=== PATIENT | female | born 1950 | race Caucasian/White ===

== ENCOUNTER 2023-02-14 12:07 | Observation (INO) | payer MEDICARE, SELFPAY ==
[2023-02-14 12:14] VITALS: BP 134/72; BP 138/82; PULSE 53; PULSE 54; RESP 18; TEMP 36.4; O2SAT 95; O2SAT 98; BMI 30.6
--- NOTE | 2023-02-14 12:29 | PC.NURSE ---
Patient alert and oriented x 3. tele: sinus driss 50's Patient is on Metoprolol. vomited after she passed out. Family at bedside.
--- NOTE | 2023-02-14 13:32 | ED.SYNCOPE ---
HPI - Syncope General Chief Complaint: Syncope Stated Complaint[place] Time Seen by Provider: 02/14/23 13:32 Source: patient and EMS Mode of arrival: EMS Limitations: no limitations History of Present Illness HPI narrative: Passed out while having breakfast at the [employer]. states that she does have a history of stents. Patient states that she took a tramadol for neck pain and was up all night with pain. Patient states at the [employer] everything was fine she ate and then suddely was spinning and got hot flashes and then passed out. After waking up she vomitted. complaint: loss of consciousness -: second(s) Prodromal symptoms: other (dizziness) Related Data Home Medications Medication Instructions Recorded Confirmed adalimumab 40 mg/0.8 mL mg subcut 02/14/23 subcutaneous pen kit (Humira Pen) aspirin 81 mg PO DAILY 02/14/23 02/14/23 atorvastatin 80 mg tablet 80 mg PO DAILY 02/14/23 02/14/23 gabapentin 800 mg tablet 800 mg PO TID 02/14/23 02/14/23 hydrochlorothiazide 25 mg tablet 25 mg PO DAILY 02/14/23 02/14/23 icosapent ethyl 1 gram capsule 2 g PO BID 02/14/23 02/14/23 (Vascepa) levothyroxine 100 mcg tablet mcg PO 02/14/23 lisinopril 20 mg tablet 20 mg PO DAILY 02/14/23 02/14/23 metoprolol tartrate 25 mg tablet 25 mg PO BID 02/14/23 02/14/23 tramadol 50 mg tablet 50 mg PO Q4-6H PRN Pain 02/14/23 02/14/23 Allergies Allergy/AdvReac Type Severity Reaction Status Date / Time Sulfa (Sulfonamide AdvReac Nausea Verified 02/14/23 12:21 Antibiotics) Review of Systems Review of Systems: Yes all other systems are reviewed and are negative Neurologic: Denies Sensory deficit (Neuro) [facility] Social History Social History Advance Directives: No Advance Directives Information Provided: Yes Physical Exam Vital Signs: Vital Signs: Last Vital Signs Temp 97.4 F 02/14/23 16:10 Pulse 55 02/14/23 16:10 Resp 16 02/14/23 16:10 BP 137/76 02/14/23 16:10 Pulse Ox 94 02/14/23 16:10 O2 Del Method Room Air 02/14/23 16:10 BMI result Body Mass Index 30.6 Const: General: healthy appearing Nutritional Appearance: average body habitus Orientation/consciousness: oriented to person and patient oriented x3 Limitations: no limitations HEENT: Head: Yes normal to inspection Ears: external ears normal General nose exam: Normal external nose present Mouth: Normal oral and palatal mucosa present and oropharynx normal Throat: Yes posterior oropharynx normal Eyes: General: appearance normal, both eyes and all related structures Neck: Other: supple Neck: Yes normal visual inspection Chest: Chest palpation & inspection: normal inspection of the chest Resp: Auscultation: clear to auscultation bilaterally Cardio: Jugular venous distension: no JVD Rate: regular rate Rhythm: regular rhythm Heart sounds: S1 normal heart sound present and S2 normal heart sound present GI: Inspection: Yes normal to inspection Palpation (GI): Soft to palpation, nontender and No hepatosplenomegaly present Auscultation: normal bowel sounds : General: Yes no CVA tenderness Back/Spine/Pelvis: Back: no CVA tenderness Skin: General skin exam: no rashes or lesions noted Neuro: General: oriented to person and patient oriented x3 Cranial nerves: Yes CN's II-XII intact bilaterally Motor exam (neuro): 5/5 motor strength present throughout Sensory Exam: No Sensory deficit (Neuro) Extrem: General: Yes normal to inspection Psych: Appearance: grossly normal Course Reevaluation(s) Reevaluation #1: patient with syncope and EKG changes will admit for cardiac workup Time: 16:16 Medical Decision Making Differential Diagnosis Differential Diagnoses: The differential diagnosis associated with the presentation includes (Syncope, arrythmia, cardiac ischemia, EKG changes) Admission/Observation Consideration of admission/observation: Escalation of care including admission/observation considered (upon arrival patient was considered for admission) Consult Healthcare Provider Management of the patient was discussed with: Hospitalist Lab Data MDM Lab Attestation statement: I reviewed the patient's lab results. (negative troponin, sodium a little low) 02/14/23 14:15 02/14/23 14:15 Labs: Lab Results 02/14/23 02/14/23 02/14/23 Range/Units 14:15 14:15 14:15 WBC 8.4 (4.8-10.8) X10*3/uL RBC 4.48 (4.20-5.50) X10*6/uL Hgb 13.3 (12.0-16.0) g/dl Hct 39.4 (37.0-47.0) % MCV 87.9 (80.0-98.0) fL MCH 29.7 (27.0-33.0) pg MCHC 33.8 (31.0-35.0) g/dl RDW 12.5 (11.0-16.0) % Plt Count 207 (160-400) X10*3/uL MPV 8.9 L (9.4-12.3) fL Immature Gran % (Auto) 0.2 (0.0-0.4) % Neut % (Auto) 71.5 (45-73) % Lymph % (Auto) 18.7 L (20-40) % [place] % (Auto) 9.0 (2-11) % Eos % (Auto) 0.0 (0-4) % Baso % (Auto) 0.6 (0-2) % Lymph # (Auto) 1.6 (1.2-4.9) X10*3/uL [place] # (Auto) 0.8 (0.1-1.2) X10*3/uL Eos # (Auto) 0.0 (0.0-0.4) X10*3/uL Baso # (Auto) 0.1 (0.0-0.2) X10*3/uL Abs Immat Gran (auto) 0.02 (0.00-0.03) X10*3/uL Absolute Neuts (auto) 6.0 (2.0-8.3) x10*3/uL Absolute Nucleated RBC 0.000 (0.0-0.012) X10*3/uL Nucleated RBC % (auto) 0.0 (0.0-0.2) /100WBC Sodium 131 L (135-145) mmol/L Potassium 4.4 (3.3-5.1) mmol/L Chloride 95 L (96-108) mmol/L Carbon Dioxide 27 (22-29) mmol/L Anion Gap 13 (12-20) BUN 14 (9-16) mg/dL Creatinine 0.91 (0.5-1.4) mg/dL Estim Creat Clear Calc 56.5 Estimated GFR > 60 Random Glucose 122 H (60-115) mg/dL Calcium 9.7 (8.4-10.2) mg/dL Troponin I High Sens < 2.7 (<3.5-17.0) ng/L Independent Interpretation I performed an independent interpretation of an: EKG (sinus 52 flipped ts V1-V4) Independent Historian Clinical information obtained from an independent historian. History obtained from or confirmed by: Spouse () and EMS Chronic Conditions Patient?s care impacted by: Other (CAD) Discharge Plan Discharge Clinical Impression: Syncope, Acute electrocardiogram changes Patient Disposition: Admitted As Inpatient
--- NOTE | 2023-02-14 13:57 | ECG_ITS ---
Test Reason : SYNCOPE Blood Pressure : / mmHG Vent. Rate : 052 BPM Atrial Rate : 052 BPM P-R Int : 190 ms QRS Dur : 096 ms QT Int : 472 ms P-R-T Axes : 047 -06 057 degrees QTc Int : 438 ms Sinus bradycardia Nonspecific T wave abnormality Abnormal ECG No previous ECGs available Referred By: Barrett Bahena Electronically Signed By:SUJIT ARGUELLO
[2023-02-14 14:19] LABS: MANUAL DIFF FLAG NO
[2023-02-14 14:20] LABS: Basophils Absolute Auto 0.1 X10*3/uL (0.0-0.2); Basophils Percent Auto 0.6 % (0-2); Hematocrit 39.4 % (37.0-47.0); Hemoglobin 13.3 g/dl (12.0-16.0); Imm Gran Abs Auto 0.02 X10*3/uL (0.00-0.03); Imm Gran Pct Auto 0.2 % (0.0-0.4); Lymphocytes Absolute Auto 1.6 X10*3/uL (1.2-4.9); Lymphocytes Percent Auto 18.7 % (20-40); Mean Corpuscular HGB Conc 33.8 g/dl (31.0-35.0); Mean Corpuscular Hemoglobin 29.7 pg (27.0-33.0); Mean Corpuscular Volume 87.9 fL (80.0-98.0); Mean Platelet Volume 8.9 fL (9.4-12.3); Monocytes Absolute Auto 0.8 X10*3/uL (0.1-1.2); Neutrophils Percent Auto 71.5 % (45-73); Platelet Count 207 X10*3/uL (160-400); Red Blood Count 4.48 X10*6/uL (4.20-5.50); Red Cell Distribution Width 12.5 % (11.0-16.0); White Blood Count 8.4 X10*3/uL (4.8-10.8)
[2023-02-14 14:52] LABS: Troponin-I High Sensitivity < 2.7 ng/L (<3.5-17.0)
[2023-02-14 15:05] LABS: Anion Gap 13 (12-20); Blood Urea Nitrogen 14 mg/dL (9-16); Calcium 9.7 mg/dL (8.4-10.2); Carbon Dioxide 27 mmol/L (22-29); Chloride 95 mmol/L (96-108); Creatinine Clr Calc Pharmacy 56.5; Estimated Glomerular Filt Rate > 60; Glucose Random 122 mg/dL (60-115); Potassium 4.4 mmol/L (3.3-5.1); Sodium 131 mmol/L (135-145)
[2023-02-14 16:10] VITALS: BP 137/76; PULSE 55; RESP 16; TEMP 36.3; O2SAT 94
--- NOTE | 2023-02-14 16:56 | P.HPHOSP_ITS ---
History of Present Illness Date of Service: 02/14/23 Chief Complaint: syncope 72-year-old female with known history of coronary artery disease status post stenting remote along with new onset diabetes mellitus and hypertension presents after a syncopal episode this afternoon. Patient states she takes tramadol for chronic neck pain and took last dose the night previous. She states she ate her brunch as usual and felt fine but when she was walking to the car became sweaty a little bit a lightheadedness along with nausea. Friends said she looked quite pale prior to arriving at the car. Upon arrival she had what is described as a syncopal episode for unknown amount of time; she did vomit a small amount sh ortly thereafter and felt better. There was no witnessed seizure activity. She states she has had these episodes before and workup yielded nothing. In the emergency room she was back at baseline vital signs were stable and 1st troponin was negative. EKG did demonstrate some inverted T-waves in the anterior lateral leads however there are no old EKGs for comparison. She will be admitted to [facility] emetry rule out protocol Review of Systems Review of Systems: Denies chest pain Denies shortness of breath Denies diarrhea but admits to nausea and vomiting Denies fever chills Denies orthopnea/PND/edema PMFSH Social History Advance Directives: No Advance Directives Information Provided: Yes Meds Allergies Allergy/AdvReac Type Severity Reaction Status Date / Time Sulfa (Sulfonamide AdvReac Nausea Verified 02/14/23 12:21 Antibiotics) Active Medications: Current Medications Acetaminophen (Acetaminophen 325 Mg Tablet) 650 mg PO Q6H PRN PRN Reason: Pain, Mild (Pain Scale 1-3) Al Hydroxide/Mg Hydroxide (Magnesium Hydrox/Alum Hydrox 30 Ml Oral.Susp) 30 ml PO Q4H PRN PRN Reason: Heartburn/Nausea Atorvastatin Calcium (Atorvastatin Calcium 80 Mg Tablet) 80 mg PO DAILY CHE Enoxaparin Sodium (Enoxaparin Sodium 40 Mg/0.4 Ml Syringe) 40 mg SUBCUT Q24H CHE Gabapentin (Gabapentin 400 Mg Capsule) 800 mg PO TID CHE Lisinopril (Lisinopril 20 Mg Tablet) 20 mg PO DAILY CHE; Protocol Metoprolol Tartrate (Metoprolol Tartrate 25 Mg Tablet) 25 mg PO BID CHE; Protocol Non-Formulary Medication (Icosapent Ethyl [Vascepa]) 2 gm PO BID COUNTS INCLUDE 234 BEDS AT THE [facility] Non-Formulary Medication (Aspirin) 81 mg PO DAILY COUNTS INCLUDE 234 BEDS AT THE [facility] Ondansetron HCl (Ondansetron Hcl 4 Mg/2 Ml Vial) 4 mg IVPUSH Q8H PRN PRN Reason: Nausea and Vomiting Sodium Chloride (0.9 % Sodium Chloride Flush 3 Ml Syringe) 3 ml IVFLUSH QSHIFT COUNTS INCLUDE 234 BEDS AT THE [facility] Home Medications Medication Instructions Recorded Confirmed Last Taken Type adalimumab 40 mg/0.8 mL mg subcut 02/14/23 Unknown History subcutaneous pen kit (Humira Pen) aspirin 81 mg PO DAILY 02/14/23 02/14/23 Unknown History atorvastatin 80 mg tablet 80 mg PO DAILY 02/14/23 02/14/23 Unknown History gabapentin 800 mg tablet 800 mg PO TID 02/14/23 02/14/23 Unknown History hydrochlorothiazide 25 mg tablet 25 mg PO DAILY 02/14/23 02/14/23 Unknown History icosapent ethyl 1 gram capsule 2 g PO BID 02/14/23 02/14/23 Unknown History (Vascepa) levothyroxine 100 mcg tablet mcg PO 02/14/23 Unknown History lisinopril 20 mg tablet 20 mg PO DAILY 02/14/23 02/14/23 Unknown History metoprolol tartrate 25 mg tablet 25 mg PO BID 02/14/23 02/14/23 Unknown History tramadol 50 mg tablet 50 mg PO Q4-6H PRN Pain 02/14/23 02/14/23 Unknown History Physical Exam Vital Signs and Narrative: Vital Signs: Last Vital Signs Temp 97.4 F 02/14/23 16:10 Pulse 55 02/14/23 16:10 Resp 16 02/14/23 16:10 BP 137/76 02/14/23 16:10 Pulse Ox 94 02/14/23 16:10 O2 Del Method Room Air 02/14/23 16:10 BMI result Body Mass Index 30.6 Const: Other: Awake alert no acute distress Neck: Other: No JVD at 30 degrees Resp: Other: Clear to auscultation bilaterally no rales rhonchi or wheezes Cardio: Other: No S4; positive S1-S2; no S3 murmurs rubs or gallops GI: Other: Soft nontender nondistended normoactive bowel sounds Neuro: Other: Cranial nerves 2-12 grossly intact as tested. Motor is 5/5 in all extremities. Sensation is intact. Cognition appropriate. Gait not observed Extrem: Other: No edema bilaterally Results Labs 02/14/23 14:15 02/14/23 14:15 Labs: Laboratory Results - last 24 hr 02/14/23 02/14/23 14:15 14:15 MCV 87.9 MCH 29.7 MCHC 33.8 RDW 12.5 Plt Count 207 MPV 8.9 L Immature Gran % (Auto) 0.2 Neut % (Auto) 71.5 Lymph % (Auto) 18.7 L [place] % (Auto) 9.0 Eos % (Auto) 0.0 Baso % (Auto) 0.6 Lymph # (Auto) 1.6 [place] # (Auto) 0.8 Eos # (Auto) 0.0 Baso # (Auto) 0.1 Abs Immat Gran (auto) 0.02 Absolute Neuts (auto) 6.0 Absolute Nucleated RBC 0.000 Nucleated RBC % (auto) 0.0 Anion Gap 13 Estim Creat Clear Calc 56.5 Estimated GFR > 60 Random Glucose 122 H Calcium 9.7 Assessment and Plan (1) Syncope: Status: Acute (2) Coronary artery disease: Status: Acute (3) Type 2 diabetes mellitus: Status: Acute Plan 72-year-old female with known cardiac disease and new onset diabetes presents with syncopal episode for approximately 1 minute that occurred after eating and was accompanied by diaphoresis vision changes nausea and vomiting. There was no witnessed seizure activity/denies heart palpitations. Upon arrival to ER, episode resolved and hemodynamically stable. 1. Syncope -gives good story for vasovagal syncope; when queried has had this before. -admitted to telemetry overnight -follow clinically 2. Coronary artery disease -subtle anterior lateral T-wave changes (no old tracings available ) -initial enzymes flat -admit to telemetry -serial enzymes -continue aspirin statin beta-romario as per outpatient dosing 3. Hypertension -acceptable control on current therapies -continue same adjust as clinically indicated 4. Hyponatremia (mild) -most likely due to thiazide diuretic -hold HCTZ and recheck renals/divalents in am 5. Type 2 diabetes -patient is diet controlled as this is new onset -lispro correctional scale Full code Lovenox Patient will require 1 midnight stay going forward to rule out cardiac etiology to syncopal episode. This cannot be achieved a lesser acute setting Time Spent With Patient Time: Total time managing care of this patient today ____ minutes. Quality Stroke Does the patient have a stroke diagnosis?: No VTE Prior VTE?: No VTE Risk Level:: Medical - moderate - high VTE Device Contraindication: Treatment Not Indicated VTE Drug Contraindication: N/A - Med Ordered
--- OUTSIDE RECORDS SUMMARY | 2023-02-14 16:58 | XMS_ITS | Patient Health Record ---
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 6 days weekly and 1/2 tablet 1 day per week Active hydroCHLOROthiazide 25 MG 0.5 tablet in the morning Orally Once a day Active Cholecalciferol 25 MCG (1000 UT) 2 Tablet Orally Once a day Active Lipitor 80 MG 1 tablet Orally Once a day Active Aspirin 81 81 MG 1 tablet Orally Once a day Active Ciclopirox Olamine 0.77 % 1 application to the right big toenail Externally once daily for 30 days 01/24/2021 Not-Taking Diclofenac Sodium 1 % 1gm as directed to arthritic joints Externally Twice a day for 30 day(s) Active Ammonium Lactate 12 % 1 application Externally once a day for 90 days 09/02/2021 Active Albuterol Sulfate HFA 108 (90 Base) MCG/ACT 2 puff as needed Inhalation 4 times daily as needed for shortness of breath Active Urea 40 % apply to affected toenail Externally Once a day for 90 days 09/01/2021 Active Adalimumab Active Lisinopril 20 MG 1 tablet Orally Once a day Active Vitamin B12 Active Gabapentin 800 MG 1 tablet Orally three times a day Active Vascepa 1 GM 2 capsules with meals Orally Twice a day Active Lopressor 25 Mg tablet, Take one by mouth 2 times a day. Active Ultram 50 MG 1 tablet as needed Orally every 6 hours as needed for pain for up to 28 days. 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) Active confirmed 0655121878261321 Problem Other polyneuropathy (G62.89) Active confirmed 13918115 Problem Tarsal tunnel syndrome of right side (G57.51) Active confirmed [id number] VITAL SIGNS Heart Rate 66 /min 09/30/2022 Temperature 96.8 degrees Fahrenheit 09/30/2022 Respiratory Rate 16 /min 09/30/2022 Height 5ft 4.5in in 09/30/2022 Weight 174.8 lbs 09/30/2022 BMI 29.54 kg/m2 09/30/2022 Encounters Encounter Location Date Provider Diagnosis [facility] [address] [address] 09/30/2022 KARLI JUNIOR Controlled type 2 diabetes mellitus without complication, without long-term current use of insulin E11.9 ; Onychomycosis B35.1 and Other polyneuropathy G62.89 [facility] [address] [address] 09/30/2022 KARLI JUNIOR [facility] [address] [address] 12/31/2022 KARLI JUNIOR ASSESSMENTS Encounter Date Diagnosis Assessment Notes Treatment Notes Treatment Clinical Notes 09/30/2022 Onychomycosis (ICD-10 - B35.1) I reviewed with the patient various treatment methods for toenail fungus including topical, oral, laser, and removal of the infected toenails. We discussed there are both OTC treatments as well as prescription medication for the topical treatment of toenail fungus. She does not wish to pursue treatment at this time. 09/30/2022 Controlled type 2 diabetes mellitus without complication, without long-term current use of insulin (ICD-10 - E11.9) Discussed with patient regarding proper glucose control, exercise, and diet. Explained to patient proper shoe gear, and importance of daily foot checks. I reviewed neuropathy and why it occurs in diabetics. I educated the patient on proper blood sugar control and the importance of an HgBA1c of less than 7.0%. I reviewed the signs and symptoms of neuropathy with thepatient. 09/30/2022 Other polyneuropathy (ICD-10 - G62.89) We discussed that she does have a change in her neurological exam this visit. She has a diminished vibratory and position sense. We discussed this could be a diabetic neuropathy or a nerve entrapment. We discussed one of the ways to determine the cause is with an EMG/nerve conduction study. She is in agreement with the plan to order this test. We discussed if this is diabetic neuropathy, there is no cure, only symptom management. She voiced understanding of this fact. PLAN OF TREATMENT Pending Test Test Name Order Date X ray : Foot, right 3v 12/23/2021 EMG/NCV Bilateral lower extremities. Insurance Providers Payer Name Payer Address Payer Phone Subscriber Number Group Number Insured Name Patient Relationship to Insured Coverage Start Date Coverage End Date [employer] of [place] [address] [place] [phone] [id number] Thais Connell Self - patient is the insured [facility] [address] [place] [phone] [id number] KoGeethaThais Self - patient is the insured MEDICAL (GENERAL) HISTORY Medical History History ICD Code COVID-19 U07.1 Lichen sclerosus et atrophicus L90.0 Psoriasis L40.9 Controlled type 2 diabetes m ellitus without complication, without long-term current use of insulin E11.9 Atherosclerotic heart diseas e of [place] coronary artery without angina pectoris I25.10 Sprain of joints and ligamen ts of unspecified parts of neck, initial encounter S13.9XXA Spondylosis without myelopathy or radicu lopathy, cervical region M47.812 Syncope and collapse R55 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 Generalized enlarged lymph nodes R59.1 Emphysema, unspecified J43.9 Mixed hyperlipidemia E78.2 Family history of colonic polyps Z83.71 Other vitamin B12 deficiency anemias D51 .8 Diverticulitis of large inte ruslan without perforation or abscess without bleeding K57.32 Chronic atrophic gastritis without bleed ing K29.40 Essential (primary) hypertension I10 Heartburn R12 Hypothyroidism, unspecified E03.9 Personal history of nicotine dependence Z87.891 Osteoporosis + COVID 06/2020 and 05/2022 COVID vaccinated X 1 ([employer]) and 2 boosters ([employer]) Surgical History Surgery Date(Month/Year) EGD Transoral Biopsy Single/ Multiple Du odenal bx wnl 2001 Historical Cardiac Cath PCI RCA LCx with MATI 09/04/2014 Historical Colonoscopy diverticulosis 20 02 Historical Colonoscopy Negative/ diverti culosis 06/13/2007 Historical Colonoscopy no polyps 016 Historical Tonsillectomy 1963 Hospitalization History Reason Date(Month/Year) heart stents pain in neck tonsillectomy 1962 vaginal delivery (girl) 1975 vaginal delivery (boy) 1973
[2023-02-14 17:07] LABS: Troponin-I High Sensitivity < 2.7 ng/L (<3.5-17.0)
--- NOTE | 2023-02-14 17:11 | PHA.MEDREC ---
Pharmacy Consult ? Medication Reconciliation Pharmacy has completed the medication reconciliation. spoke with patient to confirm medications. Nurse previously discussed with patient. Only thing patient missed while speaking with me was the aspirin. Patient verified last dose of Humira was 02/06.
[2023-02-14] MEDS: Enoxaparin Sodium 40 MG/0.4 ML SYRINGE SUBCUT (17:31)
[2023-02-14] MEDS: Acetaminophen 325 MG TABLET 650 MG PO ×2 (17:36→23:19)
[2023-02-14 18:11] VITALS: BMI 28.3
[2023-02-14 18:13] VITALS: BP 154/83; PULSE 56; RESP 14; TEMP 36.1; O2SAT 97
[2023-02-14 19:23] VITALS: BP 154/75; PULSE 58; RESP 22; TEMP 36.2; O2SAT 95
[2023-02-14] MEDS: Atorvastatin Calcium 80 MG TABLET PO (22:03)
[2023-02-14] MEDS: Gabapentin 400 MG CAPSULE 800 MG PO (22:03)
[2023-02-14 23:08] VITALS: BP 160/80; PULSE 57; RESP 18; TEMP 36; O2SAT 96
--- NOTE | 2023-02-15 | ECG_ITS ---
Test Reason : abn initial EKG Blood Pressure : / mmHG Vent. Rate : 074 BPM Atrial Rate : 074 BPM P-R Int : 188 ms QRS Dur : 096 ms QT Int : 402 ms P-R-T Axes : -01 -12 067 degrees QTc Int : 446 ms Sinus rhythm with Premature atrial complexes with Aberrant conduction Nonspecific T wave abnormality Abnormal ECG When compared with ECG of 15-FEB-2023 10:33, Aberrant conduction is now Present Referred By: Patrick Acuna Electronically Signed By:SUJIT ARGUELLO
[2023-02-15 03:39] VITALS: BP 150/75; PULSE 59; RESP 12; TEMP 36.1; O2SAT 94
[2023-02-15 06:53] LABS: MANUAL DIFF FLAG NO
[2023-02-15 07:05] LABS: Basophils Absolute Auto 0.1 X10*3/uL (0.0-0.2); Basophils Percent Auto 0.8 % (0-2); Eosinophils Percent Auto 0.5 % (0-4); Hemoglobin 13.1 g/dl (12.0-16.0); Imm Gran Abs Auto 0.02 X10*3/uL (0.00-0.03); Imm Gran Pct Auto 0.3 % (0.0-0.4); Lymphocytes Absolute Auto 2.4 X10*3/uL (1.2-4.9); Lymphocytes Percent Auto 39.4 % (20-40); Mean Corpuscular HGB Conc 33.6 g/dl (31.0-35.0); Mean Corpuscular Hemoglobin 29.6 pg (27.0-33.0); Mean Platelet Volume 9.4 fL (9.4-12.3); Monocytes Absolute Auto 0.7 X10*3/uL (0.1-1.2); Monocytes Percent Auto 11.4 % (2-11); Neutrophils Absolute Auto 2.8 x10*3/uL (2.0-8.3); Neutrophils Percent Auto 47.6 % (45-73); Platelet Count 209 X10*3/uL (160-400); Red Blood Count 4.43 X10*6/uL (4.20-5.50); Red Cell Distribution Width 12.4 % (11.0-16.0)
[2023-02-15 07:28] LABS: Alanine Aminotransferase 44 U/L (0-31); Alkaline Phosphatase 115 U/L (39-117); Anion Gap 11 (12-20); Aspartate Amino Transferase 43 U/L (5-31); Bilirubin Total 0.8 mg/dL (0.0-1.0); Blood Urea Nitrogen 10 mg/dL (9-16); Calcium 9.8 mg/dL (8.4-10.2); Carbon Dioxide 28 mmol/L (22-29); Chloride 94 mmol/L (96-108); Creatinine Clr Calc Pharmacy 66.1; Estimated Glomerular Filt Rate > 60; Glucose Fasting 116 mg/dL (60-99); Potassium 4.1 mmol/L (3.3-5.1); Sodium 129 mmol/L (135-145)
[2023-02-15 07:34] VITALS: BP 147/79; PULSE 64; RESP 17; TEMP 36.3; O2SAT 95
[2023-02-15 07:44] LABS: Troponin-I High Sensitivity < 2.7 ng/L (<3.5-17.0)
[2023-02-15] MEDS: Aspirin Enteric Coated 81 MG TABLET.DR PO (10:02)
[2023-02-15] MEDS: Gabapentin 400 MG CAPSULE 800 MG PO (10:02)
[2023-02-15] MEDS: Acetaminophen 325 MG TABLET 650 MG PO (10:02)
[2023-02-15] MEDS: lisinopriL 20 MG TABLET PO (10:06)
[2023-02-15] MEDS: Metoprolol Tartrate 25 MG TABLET PO (10:07)
[2023-02-15] MEDS: Levothyroxine Sodium 100 MCG TABLET PO (10:50)
--- NOTE | 2023-02-15 11:51 | P.DS_ITS ---
DS: Providers Provider Date of Service: 02/15/23 Date of admission: 02/14/23 16:51 Date of discharge: 02/15/23 Primary care physician: Peg Hassan MD DS: Diagnosis Discharge Diagnosis (1) Syncope: Status: Acute (2) Coronary artery disease: Status: Acute (3) Type 2 diabetes mellitus: Status: Acute DS: Summary Hospital Course Hospital Course: 72-year-old female with known history of coronary artery disease status post stenting remote along with new onset diabetes mellitus and hypertension presents after a syncopal episode this afternoon.? Patient states she takes tramadol for chronic neck pain and took last dose the night previous.? She states she ate her brunch as usual and felt fine but when she was walking to the car became sweaty a little bit a lightheadedness along with nausea.? Friends said she looked quite pale prior to arriving at the car.? Upon arrival she had what is described as a syncopal episode for unknown amount of time; she did vomit a small amount? shortly thereafter and felt better.? There was no witnessed seizure activity.? She states she has had these episodes before and workup yielded nothing.? In the emergency room she was back at baseline vital signs were stable and 1st troponin was negative.? EKG did demonstrate some inverted T-waves in the anterior lateral leads however there are no old EKGs for comparison.? She will be admitted to telemetry rule out protocol Hospital course Patient admitted to telemetry where monitor demonstrated normal sinus rhythm without acute issues. Enzymes were negative x2 yesterday and this a.m. main undetectable. EKG without changes. Patient was asymptomatic over hospital stay. Discussion with patient is likely she had a vasovagal episode and she recounts having similar in the past. At this point time I believe she is medically acceptable for discharge to follow-up with the card hand and PCP as an outpatient Time Spent with Patient Time attestation: Total time managing care of this patient today ____ minutes. Discharge coordination time: Greater than 30 minutes Quality: Safe Use of Opioids Does Pt have an Active Cancer Diagnosis on the Problem List?: No Quality: Stroke Does the patient have a stroke diagnosis?: No Physical Exam Vital Signs: Vital Signs: Last Vital Signs Temp 97.4 F 02/15/23 07:34 Pulse 64 02/15/23 07:34 Resp 17 02/15/23 07:34 BP 147/79 H 02/15/23 07:34 Pulse Ox 95 02/15/23 07:34 O2 Del Method Room Air 02/15/23 07:34 BMI result Body Mass Index 28.3 Const: Other: Awake alert no acute distress Neck: Other: No JVD at 30 degrees Resp: Other: Clear to auscultation bilaterally no rales rhonchi or wheezes Cardio: Other: No S4; positive S1-S2; no S3 murmurs rubs or gallops GI: Other: Soft nontender nondistended normoactive bowel sounds Neuro: Other: Cranial nerves 2-12 grossly intact as tested. Motor is 5/5 in all extremities. Sensation is intact. Cognition appropriate. Gait not observed Extrem: Other: No edema bilaterally DS: Data Data Completed and Pending Labs on day of discharge: Laboratory Results - last 24 hr 02/14/23 02/14/23 02/14/23 14:15 14:15 14:15 WBC 8.4 RBC 4.48 Hgb 13.3 Hct 39.4 MCV 87.9 MCH 29.7 MCHC 33.8 RDW 12.5 Plt Count 207 MPV 8.9 L Immature Gran % (Auto) 0.2 Neut % (Auto) 71.5 Lymph % (Auto) 18.7 L [place] % (Auto) 9.0 Eos % (Auto) 0.0 Baso % (Auto) 0.6 Lymph # (Auto) 1.6 [place] # (Auto) 0.8 Eos # (Auto) 0.0 Baso # (Auto) 0.1 Abs Immat Gran (auto) 0.02 Absolute Neuts (auto) 6.0 Absolute Nucleated RBC 0.000 Nucleated RBC % (auto) 0.0 Sodium 131 L Potassium 4.4 Chloride 95 L Carbon Dioxide 27 Anion Gap 13 BUN 14 Creatinine 0.91 Estim Creat Clear Calc 56.5 Estimated GFR > 60 Random Glucose 122 H Fasting Glucose Calcium 9.7 Total Bilirubin AST ALT Alkaline Phosphatase Troponin I High Sens < 2.7 Total Protein Albumin 02/14/23 02/15/23 02/15/23 16:33 06:33 06:33 WBC 6.0 RBC 4.43 Hgb 13.1 Hct 39.0 MCV 88.0 MCH 29.6 MCHC 33.6 RDW 12.4 Plt Count 209 MPV 9.4 Immature Gran % (Auto) 0.3 Neut % (Auto) 47.6 Lymph % (Auto) 39.4 [place] % (Auto) 11.4 H Eos % (Auto) 0.5 Baso % (Auto) 0.8 Lymph # (Auto) 2.4 [place] # (Auto) 0.7 Eos # (Auto) 0.0 Baso # (Auto) 0.1 Abs Immat Gran (auto) 0.02 Absolute Neuts (auto) 2.8 Absolute Nucleated RBC 0.000 Nucleated RBC % (auto) 0.0 Sodium 129 L Potassium 4.1 Chloride 94 L Carbon Dioxide 28 Anion Gap 11 L BUN 10 Creatinine 0.75 Estim Creat Clear Calc 66.1 Estimated GFR > 60 Random Glucose Fasting Glucose 116 H Calcium 9.8 Total Bilirubin 0.8 AST 43 H ALT 44 H Alkaline Phosphatase 115 Troponin I High Sens < 2.7 Total Protein 7.0 Albumin 4.0 02/15/23 06:33 WBC RBC Hgb Hct MCV MCH MCHC RDW Plt Count MPV Immature Gran % (Auto) Neut % (Auto) Lymph % (Auto) [place] % (Auto) Eos % (Auto) Baso % (Auto) Lymph # (Auto) [place] # (Auto) Eos # (Auto) Baso # (Auto) Abs Immat Gran (auto) Absolute Neuts (auto) Absolute Nucleated RBC Nucleated RBC % (auto) Sodium Potassium Chloride Carbon Dioxide Anion Gap BUN Creatinine Estim Creat Clear Calc Estimated GFR Random Glucose Fasting Glucose Calcium Total Bilirubin AST ALT Alkaline Phosphatase Troponin I High Sens < 2.7 Total Protein Albumin Discharge Plan Discharge Anticipated Discharge Date/Time: 02/15/23 11:49 Patient Disposition: Home, Self-Care Discharge Diagnosis: Vasovegal Syncope Referrals: Peg Hassan MD [Primary Care Provider] - 1 Week Discharge Medications: Continued atorvastatin 80 mg tablet 80 mg PO QPM lisinopril 20 mg tablet 20 mg PO QAM tramadol 50 mg tablet 50 mg PO Q4-6H PRN (Reason: Pain) levothyroxine 100 mcg tablet 100 mcg PO QAM gabapentin 800 mg tablet 800 mg PO TID hydrochlorothiazide 25 mg tablet 25 mg PO QAM metoprolol tartrate 25 mg tablet 25 mg PO BID Humira Pen 40 mg/0.8 mL pen injector kit 40 mg subcut Q2W Rx Instructions: 40mg q 2 weeks icosapent ethyl [Vascepa] 1 gram capsule 2 g PO BID aspirin 81 mg tablet 81 mg PO DAILY cyanocobalamin (vitamin B-12) 1,000 mcg Tablet 1,000 mcg PO QPM cholecalciferol (vitamin D3) 50 mcg (2,000 unit) Tablet,Chewable 100 mcg PO BID Discharge Orders: Discharge Order (Routine); Ordered 02/15/23 Ordered By: Patrick Acuna Diet: Advance to usual diet Activity on Discharge: As tolerated Stand Alone Forms: Patient Portal Discharge page Care Plan Goals: Resume all medications as prior to hospital Likely had a vasovagal reaction and can follow-up with your PCP as outpatient Health Concerns: Call card hand and arrange follow-up next available Plan of Treatment: Follow-up with PCP next available Assessment: See discharge summary.
[2023-02-15 11:54] VITALS: BP 108/67; PULSE 55; RESP 20; TEMP 36.4; O2SAT 94
--- NOTE | 2023-02-15 12:11 | ECG_ITS ---
Test Reason : syncope Blood Pressure : / mmHG Vent. Rate : 067 BPM Atrial Rate : 067 BPM P-R Int : 182 ms QRS Dur : 098 ms QT Int : 410 ms P-R-T Axes : 032 -10 066 degrees QTc Int : 433 ms Normal sinus rhythm Nonspecific T wave abnormality Abnormal ECG When compared with ECG of 14-FEB-2023 14:07, Heart rate has increased Referred By: Patrick Acuna Electronically Signed By:SUJIT ARGUELLO
--- NOTE | 2023-02-15 12:49 | MHC.CM.PN ---
CM MET WITH PT, , AND SON AT BEDSIDE PT REPORTS SHE LIVES WITH HER AND IS INDEPENDENT WITH CARE SHE DENIES USE OF DME OR HOME SERVICES PT REPORTS SHE COMPLETED A HCP HERE YESTERDAY HER TOOK HER COPIES HOME PCP: HÉCTOR MEI OBSERVATION NOTICE DELIVERED DCP: HOME NO SERVICES VIA FAMILY TRANSPORT
== END 2023-02-15 13:51 | disposition home or self-care (01) ==
LOC: HO.ED 16:15 → HO.EDOVER 16:56 → HO.IMC 17:10
PROVIDERS: Admitting Provider Hospitalist; Emergency Provider Emergency Medicine; PCP Internal Medicine; Visit Provider Hospitalist
DX: R55 Syncope and collapse (principal); G89.29 Other chronic pain; M54.2 Cervicalgia; I10 Essential (primary) hypertension; E11.9 Type 2 diabetes mellitus without complications; I25.10 Atherosclerotic heart disease of native coronary artery without angina pectoris; E87.1 Hypo-osmolality and hyponatremia; R61 Generalized hyperhidrosis
CPT/HCPCS: 36415; 80048; 80053; 84484; 85025; 93005; 96372; 99222; 99285; J1650

== ENCOUNTER → 2023-02-14 16:51 | Outpatient (BNV) | payer MEDICARE, SELFPAY | PROVIDERS: Admitting Provider Hospitalist; Emergency Provider Emergency Medicine; PCP Internal Medicine; Visit Provider Hospitalist | DX: R55 Syncope and collapse (principal); I25.10 Atherosclerotic heart disease of native coronary artery without angina pectoris; E11.9 Type 2 diabetes mellitus without complications | CPT/HCPCS: 99223; 99239 ==

== ENCOUNTER 2025-05-03 09:38 | Outpatient (AMB) | payer MEDICARE, SELFPAY ==
--- NOTE | 2025-05-03 09:41 | A.PHYSOV ---
Vital Signs 05/03/25 09:43 Height 5 ft 4 in Weight 170 lb BMI 29.2 Intake Visit Reasons: Increased neck pain Intake Note: Patient is a 74 year old female here for increased neck pain. Dough Scaler And Mixer Required: No Allergies Sulfa (Sulfonamide Antibiotics) Adverse Reaction (Verified 05/03/25 09:44) Nausea HPI Comments Details: Ms. Connell is a 74-year-old female seen in evaluation today for right-sided neck pain. She underwent C3-4, C4-5 facet injection on 11/27/2024. Patient reported 100% reduction of her pain she is able to move her neck with less discomfort she is overall very happy. Patient did experience an increase in pain primarily over the right upper trapezius and right occiput. She reports pain level today of 7/10. She would like to consider further treatment options for her right-sided head pain. Patient has been using gabapentin, diclofenac for pain. Procedure: Bilateral C3-4, C4-5 facet injection 11/27/2024 85% reduction of her pain Right occipital nerve block 05/03/2025 [facility] Medical History (Updated 05/03/25 @ 10:05 by AMOR Fernandez) Type 2 diabetes mellitus Coronary artery disease Surgical History Hx of tonsillectomy (Unknown) Social History Alcohol intake: current Alcohol intake frequency: does not drink Patient Tobacco Use Status: Former Tobacco user service: No Review of Systems Narrative Right-sided neck and head pain. No incontinence, saddle anesthesia urinary retention. Physical Exam Exam Exam: Cervical Spine: Examination of the cervical spine, she is less tender over the C3-4, C4-5 area. She is tender to the right occiput. She is otherwise nontender. She has limited range of motion at end range throughout cervical spine motion. Special Tests: Axial Compression test: Negative Spurlings test: Negative Lhermitte's sign is Negative Upper Extremities: Full range of motion bilateral upper extremities. Equal medical record transcriber strength bilaterally. Neuro: Sensation: Intact to upper extremities bilateral to light touch Strength C5 (Elbow Flexion): 5/5 on the left and 5/5 on the right. C6 (Elbow Ext): 5/5 on the left and 5/5 on the right. C7 (Elbow Ext): 5/5 on the left and 5/5 on the right. C8 (Finger Flex): 5/5 on the left and 5/5 on the right. T1 (Finger Abd/Add): 5/5 on the left and 5/5 on the right. DTR: C5 (Biceps): Left 2 Right 2 C6 (Brachioradialis): Left 2 Right 2 C7 (Triceps): Left 2 Right 2 Ma sign: Negative No pathologic clonus. No involuntary movement. Vital Signs: BMI result Body Mass Index 29.2 Office Procedures AMB Occipital Nerve Block Occipital Nerve Block Procedure Details: Occipital nerve block right. Patient was educated about the risks, complications and benefits of the procedure, including but not limited to infection, nerve damage, bleeding, and pain. Questions were answered at this time. Verbal consent was obtained. Patient was placed in a seated position. Identified the inion of the skull as well as the mastoid process on the right. Identified the intermediate point between these 2 landmarks. To the left is the greater occipital nerve to the right is the lesser occipital nerve. Patient was cleansed over the greater occipital and the lesser occipital area with an alcohol prep. I then used a 27-gauge needle to inject 20 mg of Kenalog with 1.5 mL of 1% lidocaine into the greater occipital area at the level of the periosteum of the skull. The procedure was then repeated over the lesser occipital nerve. The needle was removed. Patient was cleansed with an alcohol prep and a Band-Aid was applied. Patient tolerated the procedure well without immediate complication. Occipital Nerve Block - 30776: Right All charges added?: Procedure code (CPT) selection complete Office Meds Kenalog 40 mg/mL suspension for injection Performing Provider: AMOR Fernandez Performing Location: [facility] Administered by: AMOR Fernandez on 05/03/25 10:10 Dose Route Admin Location Dispensed Lot Number Expiration Date [facility] Packing Floor Worker 40 mg peripheral nerve block 1 mL [address]-1 [employer] Total Dispensed Waste 1 mL 0 % lidocaine (PF) 20 mg/mL (2 %) injection solution Performing Provider: AMOR Fernandez [facility] Administered by: AMOR Fernandez on 05/03/25 10:10 Dose Route Admin Location Dispensed Lot Number Expiration Date [employer] Packing Floor Worker 40 mg peripheral nerve block 50 mL [id number] Total Dispensed Waste 50 mL 0 % Assessment & Plan Assessment & Plan (1) Cervicalgia: Code(s): M54.2 - Cervicalgia Category: Medical (2) Occipital neuritis: Code(s): M54.81 - Occipital neuralgia Category: Medical Plan Ms. Connell is a 74-year-old female seen in evaluation today for right occipital neuritis. Patient has failed conservative treatment. Today she consented to occipital nerve block. She was given post-injection instructions, recommend: Moist heat compresses for 15 minutes up to 5 times daily. Continue with her home exercise plan and medications as prescribed. If her symptoms do not markedly improved she will consider facet injection. She responded very well to bilateral C3-4, C4-5. She will contact our office if she would like to pursue injection which I will place order for. She will continue her home exercise plan and medications otherwise as prescribed. Thank you for allowing me to participate in the care of your patient. Orders: Orders AMB Occipital Nerve Block Today M54.81 - Occipital neuralgia Coding Level of Care Code Tele Est Pt Level 3 (89423) Diagnoses Cervicalgia M54.2 Occipital neuritis M54.81 CPT Codes Occipital Nerve Block - Occipital Block 71170: Right ([id number])
[2025-05-03 09:43] VITALS: BMI 29.2
== END 2025-05-03 10:09 | disposition home or self-care (01) ==
LOC: HO.HPHYS 09:38
PROVIDERS: PCP Internal Medicine; Visit Provider Physician Assistant
DX: M54.2 Cervicalgia (principal); M54.81 Occipital neuralgia
CPT/HCPCS: 64405; 99213

== ENCOUNTER → 2025-05-03 09:38 | Outpatient (BNVA) | payer MEDICARE, SELFPAY | PROVIDERS: PCP Internal Medicine; Visit Provider Physician Assistant | DX: M54.81 Occipital neuralgia (principal); M54.2 Cervicalgia | CPT/HCPCS: 64405; 64450; 99212; J2003; J3301 ==